=== PATIENT | female | born 1995 | race Caucasian/White ===

== ENCOUNTER 2022-08-14 19:02 | Emergency (ER) | payer OTHER ==
[~2022-08-14] VITALS: Ht 170.2 cm; Wt 45.4 kg
[2022-08-14 20:36] VITALS: BP 112/71
--- NOTE | 2022-08-14 20:49 | NUR ---
TO LOBBY FOLLOWING TRIAGE
[2022-08-14] MEDS ORDERED: METOCLOPRAMIDE 10 MG TAB PO ONE (21:30)
[2022-08-14] MEDS ORDERED: KETOROLAC 30 MG/ML VIAL IM ONE (21:30)
[2022-08-14] MEDS ORDERED: ONDANSETRON 4 MG ODT PO ONE (22:15)
--- NOTE | 2022-08-14 22:47 | NUR ---
Patient discharged with v/s stable. Written and verbal after care instructions given and explained. Patient verbalized understanding. Ambulatory with steady gait. All questions addressed prior to discharge. Advised to follow up with PMD.
== END 2022-08-14 22:47 | disposition home or self-care (01) ==
LOC: MED 19:02
DX: R51.9 Headache, unspecified (principal); H53.8 Other visual disturbances
CPT/HCPCS: 81002; 81025; 96372; 99283; J1885; Q0162; Q0163; J8597